=== PATIENT | female | born 1980 | race Caucasian/White ===

== ENCOUNTER 2018-07-01 14:06 | Inpatient (IN) | payer OTHER ==
[~2018-07-01] VITALS: Ht 182.9 cm; Wt 127.9 kg
== END 2018-07-03 14:55 | disposition home or self-care (01) | DRG 603 ==
LOC: ER 14:06 → SURH 18:10
PROC: BH48ZZZ Ultrasonography of Lower Extremity (ICD-10-PCS; principal; 2018-07-01)
DX: L02.415 Cutaneous abscess of right lower limb (principal); L02.215 Cutaneous abscess of perineum; L03.115 Cellulitis of right lower limb; B95.61 Methicillin susceptible Staphylococcus aureus infection as the cause of diseases classified elsewhere; E66.8 Other obesity